=== PATIENT | female | born 2005 | race Two or more races ===

== ENCOUNTER 2025-01-05 13:36 | Outpatient (CLI) | payer OTHER ==
[~2025-01-05] VITALS: Ht 152.4 cm; Wt 95.3 kg
[2025-01-05 12:20] VITALS: BP 111/64
[2025-01-05 13:21] VITALS: BP 111/64
[2025-01-05] MEDS ORDERED: 0.9 % SODIUM CHLORIDE 1,000 ML IV SCH (14:00)
[2025-01-05] MEDS ORDERED: FAMOTIDINE/PF 20 MG/2 ML VIAL IV NR (14:00)
[2025-01-05 14:24] LABS: BASO % 0.3 % (0.1-1.2); EOS # 0.08 (0.04-0.54); EOS % 0.8 % (0.7-7.0); LYMPH # 2.25 (1.18-3.74); LYMPH % 23.7 % (19.3-53.1); MEAN PLATELET VOLUME 10.20 fl (9.4-12.4); MONO # 0.57 (0.24-0.82); MONO % 6.0 % (4.7-12.5); NEUT # 6.48 (1.56-6.13); NEUT % 68.5 % (34.0-71.1); RED CELL DISTRIBUTION WIDTH 14.4 % (11.6-14.4)
[2025-01-05 14:33] LABS: URINE APPEARANCE Clear; URINE BACTERIA 1027.2 uL (0.0-1933); URINE BILIRRUBIN Negative (NEGATIVE); URINE BLOOD Negative; URINE COLOR Yellow; URINE EPITHELIAL CELLS 65.9 uL (0.0-38.8); URINE GLUCOSE Negative (NEGATIVE); URINE KETONE Negative (NEGATIVE); URINE LEUKOCYTE Trace; URINE NITRATE Negative; URINE PROTEIN Negative (NEGATIVE); URINE RBC 3.0 uL (0.0-20.8); URINE UROBILINOGEN 0.2 E.U./dl; URINE WBC 48.4 uL (0.0-23.2)
[2025-01-05] MEDS ORDERED: PRENATAL + DHA1 EAC1 PO (14:34)
[2025-01-05 15:05] LABS: URINE CAST 0.58 uL (0.0-1.40)
[2025-01-05 15:09] LABS: ALT/SGPT 25.0 U/L (12-78); AST/SGOT 24.0 U/L (15-37); BILIRUBIN TOTAL 0.38 mg/dL (0.3-1.2); BUN CREA RATIO 13.0 (7.0-25.0); CREATININE SERUM 0.46 mg/dL (0.55-1.02); GFR 171.48; GLOBULINA 3.3 G/DL (2.4-3.5); GLUCOSE FASTING 79.0 mg/dL (65-100); OSMOLALITY SERUM 278.0 MOSM/KG (275-295); URINE MUCUS SCANT
[2025-01-05 15:26] LABS: TYPE CELLS SQUAMOUS
[2025-01-05 15:48] VITALS: BP 103/53
[2025-01-05] MEDS ORDERED: CEFAZOLIN SODIUM 1,000 MG VIAL ONE (19:58)
[2025-01-05 20:20] VITALS: BP 123/81
[2025-01-05] MEDS ORDERED: CEFAZOLIN SODIUM 1,000 MG VIAL IV SCH (21:34)
[2025-01-05 23:11] VITALS: BP 92/53
[2025-01-06 03:29] VITALS: BP 91/60
[2025-01-06 06:22] VITALS: BP 91/53; O2SAT 98
[2025-01-06 11:00] VITALS: BP 110/67
== END 2025-01-06 10:59 | disposition home or self-care (01) ==
LOC: OBS/DEL 13:36
PROVIDERS: ATTEND Obstetrics & Gynecology
DX: O26.892 Other specified pregnancy related conditions, second trimester (principal); O26.849 Uterine size-date discrepancy, unspecified trimester; O36.8130 Decreased fetal movements, third trimester, not applicable or unspecified; O26.899 Other specified pregnancy related conditions, unspecified trimester; Z3A.24 24 weeks gestation of pregnancy

== ENCOUNTER → 2025-02-22 16:36 | Outpatient (CLI) | payer OTHER ==
[~2025-02-22 16:36] MED LIST: PRENATAL + DHA1 EAC1 PO
== END | disposition home or self-care (01) ==
LOC: PRENATAL 16:36
PROVIDERS: ATTEND Obstetrics & Gynecology Maternal & Fetal Medicine
DX: O26.843 Uterine size-date discrepancy, third trimester (principal); O36.8130 Decreased fetal movements, third trimester, not applicable or unspecified; Z3A.31 31 weeks gestation of pregnancy